=== PATIENT | male | born 1975 | race Caucasian/White ===

== ENCOUNTER 2020-03-04 03:50 | Emergency (ER) | payer OTHER ==
[~2020-03-04] VITALS: Ht 182.9 cm; Wt 95.3 kg
[~2020-03-04 03:50] MED LIST: NICOTINE TRANSD14 M1 TRANSDERM; VITAMIN B-1100 M2 PO
[2020-03-04] MEDS ORDERED: NOHOMEMEDICATIONS (04:03)
[2020-03-04 04:20] LABS: ANION GAP 13 mmol/L (7-16); BUN 8 mg/dL (7-18); CHLORIDE 99 mmol/L (98-107); CO2 23 mmol/L (21-32); CREATININE 1.1 mg/dL (0.7-1.3); GLUCOSE 105 mg/dL (74-106); POTASSIUM 3.4 mmol/L (3.5-5.1); SODIUM 135 mmol/L (136-145)
[2020-03-04 04:30] LABS: ALBUMIN 3.4 g/dL (3.4-5.0); LIPASE 329 U/L (73-393); SGOT 93 U/L (15-37); SGPT 41 U/L (30-65); TOTAL BILIRUBIN 1.6 mg/dL (0.2-1.0); TOTAL PROTEIN 8.8 g/dL (6.4-8.2); TROPONIN-I <0.06 ng/mL (<0.06)
[2020-03-04 04:57] LABS: HEMATOCRIT 45.2 % (42.0-52.0); HEMOGLOBIN 15.5 gm/dL (14.0-18.0); MCH 36.8 pg (26.0-34.0); MCHC 34.2 g/dL (28.0-37.0); MCV 107.5 fL (80.0-100.0); PLATELET COUNT 130 thou/uL (150-400); RDW 13.2 % (10.5-14.5); WBC 7.1 thou/uL (4.0-11.0)
[2020-03-04 05:12] LABS: URINE BILIRUBIN 1+ (Negative); URINE BLOOD NEGATIVE (Negative); URINE CLARITY CLEAR; URINE COLOR YELLOW; URINE GLUCOSE-RANDOM* NEGATIVE (Negative); URINE KETONES TRACE (Negative); URINE LEUKOCYTES-REFLEX TRACE (Negative); URINE NITRITE-REFLEX NEGATIVE (Negative); URINE PROTEIN (DIPSTICK) NEGATIVE (Negative)
[2020-03-04 06:05] LABS: TOTAL BILIRUBIN 1.7 mg/dL (0.2-1.0)
[2020-03-04 07:11] LABS: ABSOLUTE NEUTROPHILS 2.5 thou/uL (1.4-8.2); ANISOCYTOSIS 1+; MACROCYTES 2+; PLATELET ESTIMATE NORMAL
[2020-03-04] MEDS ORDERED: ZOFRAN ODT4 MG PO (09:40)
[2020-03-04] MEDS ORDERED: IBU400 MG PO (09:40)
[2020-03-04 10:00] VITALS: BP 110/78
--- NOTE | 2020-03-06 07:29 | EKG ---
[facility] [place] [address] ELECTROCARDIOGRAM REPORT Name: MEDINA VERA Room #: [facility]#: [id number] Admission: 03/04/20 Attend Phys: Discharge: 03/04/20 Date of : 79 Report #: [id number] THIS REPORT FOR: cc: DIPAK - Mela family physician/PCP DIPAK - Mela family physician/PCP Fortino Garibay MD [facility] ~ THIS REPORT FOR: //name// [facility] ED Test Date: 2020-03-04 Test Time: 03:55:10 Pat Name: MEDINA VERA Department: Room: Gender: [employer] W[employer] Operator: [facility] : 1975 Requested By: Arden Prabhakar Order Number: [id number] MD: Fortino Garibay Measurements Intervals [place] Rate: 76 P: 13 OR: 127 QRS: 46 QRSD: 96 T: 31 QT: 416 QTc: 468 Interpretive Statements Sinus rhythm Compared to ECG 03/13/2016 13:41:42 No significant changes Electronically Signed On 03-06-2020 7:29:43 [employer] by Fortino Garibay [email or web address] <ELECTRONICALLY SIGNED> By: Fortino Garibay MD, FACC 03/06/20 [id number] Fortino Garibay MD, [facility] /EPI
== END 2020-03-04 10:41 | disposition home or self-care (01) ==
LOC: ER 03:50
PROVIDERS: Emergency Medicine
DX: K80.50 Calculus of bile duct without cholangitis or cholecystitis without obstruction (principal); F17.210 Nicotine dependence, cigarettes, uncomplicated; I10 Essential (primary) hypertension; Z20.828 Contact with and (suspected) exposure to other viral communicable diseases